=== PATIENT | male | born 1930 | race Caucasian/White ===

== ENCOUNTER 2017-11-26 00:04 | Observation (INO) | payer OTHER, MEDICARE ==
[~2017-11-26] VITALS: Ht 165.1 cm; Wt 88.6 kg
[2017-11-26 01:23] LABS: HEMATOCRIT 36.8 % (38.0-50.0); MCH 29.9 PG (29.0-34.0); MCHC 32.6 G/DL (30.0-36.0); MCV 91.5 FL (86-99); PLATELET COUNT 237 K/uL (156-360); RBC DIS.WIDTH-CV 13.1 % (11.8-14.6); RBC DIS.WIDTH-SD 44.3 % (39-53); RED BLOOD COUNT 4.02 M/uL (4.00-5.50); WHITE BLOOD COUNT 15.6 K/uL (4.1-10.2)
[2017-11-26 01:37] LABS: CHLORIDE 103 mEq/L (99-109); POTASSIUM 4.6 mEq/L (3.7-5.4); SODIUM 141 mEq/L (136-147)
[2017-11-26 01:39] LABS: GLUCOSE 159 mg/dL (70-99)
[2017-11-26 01:43] LABS: CREATININE 0.9 mg/dL (0.6-1.3); GFR ESTIMATE (CALCULATED) > 59 mL/min/ (58.99-99999); UREA NITROGEN (BUN) 24 mg/dL (9-23)
[2017-11-26 01:45] LABS: TROP-I INTERPRETATION NEGATIVE; TROPONIN-I < 0.01 ng/mL (0.0-0.30)
[2017-11-26 05:35] VITALS: BP 142/65
[2017-11-26 07:06] LABS: TROP-I INTERPRETATION NEGATIVE; TROPONIN-I < 0.01 ng/mL (0.0-0.30)
[2017-11-26 07:35] VITALS: BP 141/66
[2017-11-26 11:52] VITALS: BP 156/73
[2017-11-26] MEDS ORDERED: GLUCOPHAGE500 MG PO (13:35)
[2017-11-26] MEDS ORDERED: LOW DOSE ASPIRI81 M1 PO (13:36)
[2017-11-26] MEDS ORDERED: B-121000 MC2 PO (13:36)
[2017-11-26] MEDS ORDERED: PRAVACHOL10 MG PO (13:36)
[2017-11-26] MEDS ORDERED: TRAVATAN Z5 ML BOTH EYES (13:37)
[2017-11-26] MEDS ORDERED: TIMOPTIC-0100 DROP/1 BOTH EYES (13:37)
[2017-11-26] MEDS ORDERED: OXYBUTYNIN CHLOR5 MG PO (13:38)
[2017-11-26 14:40] LABS: APPEARANCE CLEAR ((CLEAR)); BILIRUBIN NEGATIVE; BLOOD NEGATIVE; COLOR YELLOW ((YELLOW)); GLUCOSE (STRIP) NEGATIVE; KETONES NEGATIVE; LEUKOCYTES SMALL; NITRITE NEGATIVE; PROTEIN (STRIP) NEGATIVE
[2017-11-26 14:53] LABS: BACTERIA NONE SEEN /HPF; EPITHELIAL CELLS RARE /HPF; MUCUS TRACE /LPF; RED BLOOD CELLS 0-5 /HPF (0-5); UCUL ADDED? YES
[2017-11-26 15:46] VITALS: BP 150/68
[2017-11-26 19:44] VITALS: BP 150/67
[2017-11-27] VITALS: BP 164/68
[2017-11-27 03:46] VITALS: BP 166/78
[2017-11-27 05:29] LABS: BASOPHIL (%) 0.4 % (0-1); EOSINOPHIL (%) 4.4 % (0-5); EOSINOPHIL COUNT 0.5 K/uL (0-0.3); HEMATOCRIT 36.7 % (38.0-50.0); HEMOGLOBIN 11.7 G/DL (12.5-16.6); IMMATURE GRANULOCYTE (%) 0.5 % (0.0-0.7); LYMPHOCYTE (%) 15.4 % (15-42); LYMPHOCYTE COUNT 1.6 K/uL (1.0-2.8); MCH 28.5 PG (29.0-34.0); MCHC 31.9 G/DL (30.0-36.0); MCV 89.3 FL (86-99); MONOCYTE (%) 11.3 % (3-12); MONOCYTE COUNT 1.2 K/uL (0-0.8); PLATELET COUNT 245 K/uL (156-360); RBC DIS.WIDTH-CV 13.1 % (11.8-14.6); RBC DIS.WIDTH-SD 43.3 % (39-53); RED BLOOD COUNT 4.11 M/uL (4.00-5.50); WHITE BLOOD COUNT 10.2 K/uL (4.1-10.2)
[2017-11-27 06:18] LABS: ALBUMIN 3.1 G/DL (3.2-4.8); ALKALINE PHOSPHATASE 103 IU/L (3-129); ALT (GPT) 12 IU/L (3-49); AST (GOT) 17 IU/L (2-34); CHLORIDE 105 MEQ/L (99-109); CREATININE 0.7 MG/DL (0.6-1.3); DIRECT BILIRUBIN 0.1 mg/dL (0.0-0.3); GFR ESTIMATE (CALCULATED) > 59 mL/min/ (58.99-99999); GLUCOSE 165 mg/dL (70-99); POTASSIUM 3.7 MEQ/L (3.7-5.4); SODIUM 141 MEQ/L (136-147); TOTAL BILIRUBIN 0.6 MG/DL (0.0-1.0); UREA NITROGEN (BUN) 15 mg/dL (9-23)
[2017-11-27 07:52] VITALS: BP 186/78
[2017-11-27 11:41] VITALS: BP 147/91
[2017-11-27 19:00] VITALS: BP 169/72
== END 2017-11-27 19:20 | disposition short-term general hospital (02) ==
LOC: EME → EDBD 00:04 → EDOF 03:45 → 4SOUTH 03:45 → ENRESERV 03:53 → 4SOUTH 05:17
PROVIDERS: Emergency Medicine; Internal Medicine
DX: G89.11 Acute pain due to trauma (principal); R53.1 Weakness; S32.028A Other fracture of second lumbar vertebra, initial encounter for closed fracture; M45.6 Ankylosing spondylitis lumbar region; Z86.73 Personal history of transient ischemic attack (TIA), and cerebral infarction without residual deficits; H91.90 Unspecified hearing loss, unspecified ear; H54.40 Blindness, one eye, unspecified eye; H35.30 Unspecified macular degeneration; E11.9 Type 2 diabetes mellitus without complications; W18.30XA Fall on same level, unspecified, initial encounter; D72.829 Elevated white blood cell count, unspecified; Z91.81 History of falling; Z90.49 Acquired absence of other specified parts of digestive tract
CPT/HCPCS: 70450; 70551; 71045; 71250; 72131; 72170; 80048; 80076; 81003; 82948; 84484; 85025; 85027; 87086; 93005; 93880; 99281; 99284; G0378; J0696; J1644; J2270

== ENCOUNTER 2017-12-07 12:50 | Emergency (ER) | payer OTHER, MEDICARE ==
[~2017-12-07] VITALS: Ht 167.6 cm; Wt 84.2 kg
[~2017-12-07 12:50] MED LIST: B-121000 MC2 PO; GLUCOPHAGE500 MG PO; LOW DOSE ASPIRI81 M1 PO; OXYBUTYNIN CHLOR5 MG PO; PRAVACHOL10 MG PO; TIMOPTIC-0100 DROP/1 BOTH EYES; TRAVATAN Z5 ML BOTH EYES
[2017-12-07 14:33] LABS: APPEARANCE SL.HAZY ((CLEAR)); BILIRUBIN NEGATIVE; BLOOD LARGE; COLOR YELLOW ((YELLOW)); GLUCOSE (STRIP) NEGATIVE; KETONES NEGATIVE; LEUKOCYTES TRACE; NITRITE NEGATIVE; PROTEIN (STRIP) NEGATIVE; UROBILINOGEN 0.2 MG/DL (0.2-1.0)
[2017-12-07 14:36] LABS: BACTERIA RARE /HPF; EPITHELIAL CELLS RARE /HPF; MUCUS TRACE /LPF; RED BLOOD CELLS TNTC /HPF (0-5); UCUL ADDED? YES
[2017-12-07 15:20] LABS: CHLORIDE 105 mEq/L (99-109); POTASSIUM 3.9 mEq/L (3.7-5.4); SODIUM 140 mEq/L (136-147)
[2017-12-07 15:21] LABS: GLUCOSE 120 mg/dL (70-99)
[2017-12-07 15:25] LABS: GFR ESTIMATE (CALCULATED) > 59 mL/min/ (58.99-99999)
[2017-12-07 15:26] LABS: UREA NITROGEN (BUN) 32 mg/dL (9-23)
[2017-12-07 15:28] LABS: CREATININE 0.8 mg/dL (0.6-1.3)
[2017-12-07 18:28] VITALS: BP 134/55
== END 2017-12-07 18:29 ==
LOC: EME 12:50
PROVIDERS: Emergency Medicine
PROC: 0T9B70Z Drainage of Bladder with Drainage Device, Via Natural or Artificial Opening (ICD-10-PCS; principal; 2017-12-07)
DX: R33.9 Retention of urine, unspecified (principal); Z98.890 Other specified postprocedural states; Z86.73 Personal history of transient ischemic attack (TIA), and cerebral infarction without residual deficits; H54.7 Unspecified visual loss; H91.90 Unspecified hearing loss, unspecified ear
CPT/HCPCS: 80048; 81003; 87086; 99281; 99284